=== PATIENT | male | born 1970 | race Caucasian/White ===

== ENCOUNTER → 2017-02-02 | Outpatient (CLI) | payer BC ==
--- NOTE | 2017-02-02 14:02 | KCIC ---
EXAM: Lumbar spine MRI without contrast. HISTORY: Leg weakness. Pain. TECHNIQUE: Multiplanar, multisequence magnetic resonance imaging of the lumbar spine was performed without contrast. COMPARISON: None. FINDINGS: There is grade 1 anterolisthesis of L4 on L5, measuring 7 mm. There is disc desiccation at L4-L5 and L5-S1. The conus terminates at L1. There is mild edema within the right L5 pedicle, likely degenerative or due to a slight stress reaction. No suspicious osseous lesion is seen. There is a small left renal cyst. At L1-L2, there is a mild disc bulge. There is mild facet arthropathy. There is no stenosis. At L2-L3, there is no stenosis. At L3-L4, there is a mild disc bulge with possible tiny right extra foraminal disc protrusion. There is mild facet arthropathy. There is mild right foraminal stenosis with abutment of the exiting right L3 nerve root. At L4-L5, there are left greater than right paracentral to foraminal disc protrusions with slight superior foraminal extrusion superimposed on a disc bulge and endplate remodeling. There is severe facet arthropathy. There is grade 1 anterolisthesis. There is mild right and ecok-pw-fahrbuli left foraminal stenosis with abutment of the exiting left greater than right L4 nerve roots. There is mild central canal stenosis. At L5-S1, there is a right paracentral annular tear superimposed on a disc bulge. There is no stenosis. IMPRESSION: 1. Degenerative change throughout the lumbar spine, described in detail above. This results in mild right foraminal stenosis with abutment of the exiting right L3 nerve root at L3-L4 and mild right and mild to moderate left foraminal stenosis with abutment of the exiting left greater than right L4 nerve root and mild central canal stenosis at L4-L5. 2. Grade 1 anterolisthesis of L4 on L5. Electronically signed by: Marcia Dunbar MD (02/02/2017 1:58 PM) [facility]
== END | disposition home or self-care (01) ==
LOC: KCIC MRI 12:42
PROVIDERS: ATTEND Nurse Practitioner Family
DX: M51.26 Other intervertebral disc displacement, lumbar region (principal); M48.061 Spinal stenosis, lumbar region without neurogenic claudication; R29.898 Other symptoms and signs involving the musculoskeletal system; R53.1 Weakness
CPT/HCPCS: 72148

== ENCOUNTER → 2017-02-13 | Outpatient (CLI) | payer BC ==
--- NOTE | 2017-02-13 16:23 | KCIC ---
LUMBAR SPINE 2-3V Clinical Indication: Spondylolisthesis. Chronic low back pain. Injury years ago. Comparison: MR lumbar spine without contrast February 02, 2017. Findings: Supine lateral and standing flexion and extension lateral views. On neutral view there is grade 1 anterolisthesis of L4 on L5 that measures about 7 mm. There is mild disc space narrowing of L4/L5. Other disc spaces are maintained. No loss of vertebral body height. On the extension view the anterolisthesis measures 7-8 mm. On the flexion view, anterolisthesis measures 11 mm. IMPRESSION: Grade 1 anterolisthesis of L4 on L5. Evidence of instability on the flexion and extension views. Electronically signed by: Rufino Rodarte MD (02/13/2017 4:20 PM) [id number]
== END | disposition home or self-care (01) ==
LOC: KCIC 15:11
PROVIDERS: ATTEND Neurological Surgery
DX: M53.2X6 Spinal instabilities, lumbar region (principal); M43.16 Spondylolisthesis, lumbar region
CPT/HCPCS: 72100

== ENCOUNTER → 2017-03-12 | Outpatient (CLI) | payer BC ==
[2017-03-12 15:58] LABS: ADD MAN DIFF? NO
[2017-03-12 16:01] LABS: BASO % 1 % (0-3); EOS # 0.1 x10^3/uL (0.0-0.7); EOS % 1 % (0-3); HEMATOCRIT 47.7 % (39.0-53.0); HEMOGLOBIN 15.6 g/dL (13.0-17.5); LYMPH # 1.6 x10^3/uL (1.0-4.8); LYMPH % 23 % (24-48); MEAN CORPUSCULAR HEMOGLOBIN 29 pg (25-35); MEAN CORPUSCULAR HGB CONC 33 g/dL (31-37); MEAN CORPUSCULAR VOLUME 88 fL (79-100); MONO # 0.6 x10^3/uL (0.0-1.1); MONO % 9 % (0-9); NEUT # 4.6 x10^3uL (1.8-7.7); NEUT % 66 % (31-73); PLATELET COUNT 183 x10^3/uL (140-400); RED BLOOD COUNT 5.45 x10^6/uL (4.30-5.70); RED CELL DISTRIBUTION WIDTH 14.2 % (11.5-14.5); WHITE BLOOD COUNT 6.9 x10^3/uL (4.0-11.0)
[2017-03-12 16:11] LABS: PARTIAL THROMBOPLASTIN TIME 25 SEC (24-38); PROTHROMBIN TIME PATIENT 12.3 SEC (11.7-14.0)
[2017-03-12 16:23] LABS: ALBUMIN 4.1 g/dL (3.4-5.0); ALBUMIN/GLOBULIN RATIO 1.2 (1.0-1.7); ALK PHOS 86 U/L (46-116); ALT (SGPT) 27 U/L (16-63); ANION GAP 8 (6-14); AST (SGOT) 20 U/L (15-37); BLOOD UREA NITROGEN 14 mg/dL (8-26); BUN/CREATININE RATIO 18 (6-20); CALCIUM 9.6 mg/dL (8.5-10.1); CARBON DIOXIDE 28 mmol/L (21-32); CHLORIDE 103 mmol/L (98-107); CREATININE 0.8 mg/dL (0.7-1.3); GFR 104.1; GLUCOSE 95 mg/dL (70-99); POTASSIUM 4.7 mmol/L (3.5-5.1); SODIUM 139 mmol/L (136-145); TOTAL BILIRUBIN 0.3 mg/dL (0.2-1.0); TOTAL PROTEIN 7.6 g/dL (6.4-8.2)
[2017-03-13 02:12] LABS: MRSA BY PCR Negative (Negative)
== END | disposition home or self-care (01) ==
LOC: SURGPAT 13:16
DX: Z01.818 Encounter for other preprocedural examination (principal); M54.16 Radiculopathy, lumbar region; M43.16 Spondylolisthesis, lumbar region; M48.061 Spinal stenosis, lumbar region without neurogenic claudication
CPT/HCPCS: 36415; 80053; 85025; 85610; 85730; 87641

== ENCOUNTER 2017-03-22 07:56 | Inpatient (IN) | payer BC ==
[~2017-03-22 07:56] MED LIST: HYDROmorphone 2 MG/ML VIAL IV; LIDOCAINE 1% PF 2 ML VIAL. ID; ONDANSETRON PF 4 MG/2 ML VIAL. IV; PROCHLORPERAZINE 10 MG/2 ML VIAL. IV; fentaNYL PF VIAL 100 MCG/2 ML VIAL IV
[2017-03-22] MEDS: IV RINGERS,LACTATED 1000ML 1,000 ML IV (08:42)
[2017-03-22] MEDS: VANCOMYCIN 1GM IVPB FOR OMNI 250 ML IV (09:19)
[2017-03-22] MEDS ORDERED: ONDANSETRON PF 4 MG/2 ML VIAL. (09:44)
[2017-03-22] MEDS ORDERED: MIDAZOLAM HCL/PF 2 MG/2 ML VIAL. (09:44)
[2017-03-22] MEDS ORDERED: PROPOFOL 20 ML IV ×2 (09:44→16:33)
[2017-03-22] MEDS ORDERED: DEXAMETHASONE SOD PHOS 20 MG/5 ML VIAL. (09:44)
[2017-03-22] MEDS ORDERED: LIDOCAINE 1% PF 5 ML VIAL. (09:44)
[2017-03-22] MEDS ORDERED: REMIFENTANIL 2 MG VIAL. IV (09:44)
[2017-03-22] MEDS ORDERED: PROPOFOL 50 ML IV ×3 (09:44→14:31)
[2017-03-22] MEDS ORDERED: ROCURONIUM 50 MG/5 ML VIAL. (09:44)
[2017-03-22] MEDS ORDERED: 0.9 % SODIUM CHLORIDE 50 ML VIAL. IJ (09:44)
[2017-03-22] MEDS ORDERED: MINERAL OIL/PETROLATUM,WHITE OPHTH OINT 3.5GM TUBE. (09:44)
[2017-03-22] MEDS ORDERED: GLYCOPYRROLATE 1 MG/5 ML VIAL. (11:09)
[2017-03-22] MEDS: KETOROLAC 60 MG/2 ML INJ FOR OR. (11:12)
[2017-03-22] MEDS: BACITRACIN 50,000 UNIT in IV NORMAL SALINE 1000ML BAG 1,000 ML IRR (11:12)
[2017-03-22] MEDS: GELATIN SPONGE SIZE 100. (11:12)
[2017-03-22] MEDS: THROMBIN TOPICAL 20,000 UNIT SPRAY.SYRN KIT TP (11:12)
[2017-03-22] MEDS: BUPIVAC MPF-EPI 0.75%-1:200000 30 ML VIAL. (11:12)
[2017-03-22] MEDS ORDERED: DESFLURANE > 120 MINUTES IH (13:04)
[2017-03-22] MEDS ORDERED: REMIFENTANIL 1 MG VIAL. IV (14:01)
[2017-03-22] MEDS ORDERED: VANCOMYCIN 1GM IVPB FOR OMNI. (15:03)
[2017-03-22] MEDS ORDERED: VANCOMYCIN 1GM IVPB FOR OMNI 250 ML IV (15:30)
[2017-03-22] MEDS ORDERED: fentaNYL PF VIAL 100 MCG/2 ML VIAL ×2 (16:01→16:43)
[2017-03-22] MEDS ORDERED: MAGNESIUM HYDROXIDE 2,400 MG/30 ML ORAL.SUSP. PO (16:30)
[2017-03-22] MEDS ORDERED: ACETAMINOPHEN 325 MG TABLET. PO (16:30)
[2017-03-22] MEDS ORDERED: MAG HYDROX/ALUMINUM HYD/SIMETH 30 ML ORAL.SUSP PO (16:30)
[2017-03-22] MEDS ORDERED: diphenhydrAMINE HCL 25 MG CAPSULE PO (16:30)
[2017-03-22] MEDS ORDERED: CALCIUM CARBONATE 500 MG TAB.CHEW PO (16:30)
[2017-03-22] MEDS ORDERED: ONDANSETRON PF 4 MG/2 ML VIAL. IV (16:30)
[2017-03-22] MEDS ORDERED: fentaNYL PF VIAL 100 MCG/2 ML VIAL IV ×2 (16:30)
[2017-03-22] MEDS ORDERED: diphenhydrAMINE 50 MG/ML VIAL IV (16:30)
[2017-03-22] MEDS ORDERED: 0.9 % SODIUM CHLORIDE 10 ML DISP.SYRIN. IV (16:30)
[2017-03-22] MEDS ORDERED: HALOPERIDOL LACTATE 5 MG/ML VIAL. (16:44)
[2017-03-22] MEDS: HALOPERIDOL LACTATE 5 MG/ML VIAL. IV (16:45)
[2017-03-22] MEDS: fentaNYL PF VIAL 100 MCG/2 ML VIAL IV ×4 (16:48→17:12)
[2017-03-22] MEDS: MORPHINE SULFATE 2 MG/ML DISP.SYRIN. IV (16:58)
[2017-03-22] MEDS: POTASSIUM CL 20MEQ D5-0.45NACL 1,000 ML IV (20:00)
[2017-03-22] MEDS: METHOCARBAMOL 750 MG TABLET PO (20:08)
[2017-03-22] MEDS: oxyCODONE/APAP 5/325 1 TAB TABLET PO (20:08)
[2017-03-22] MEDS: DOCUSATE SODIUM 100 MG CAPSULE. PO (20:09)
[2017-03-22] MEDS: rOPINIRole 1 MG TABLET. PO (20:09)
[2017-03-22] MEDS: VANCOMYCIN 1 GM in IV DEXTROSE 5% 250 ML IV (21:35)
[2017-03-22] MEDS: LOPERAMIDE 2 MG CAPSULE PO (23:09)
[2017-03-23] MEDS: oxyCODONE/APAP 5/325 1 TAB TABLET PO ×4 (01:15→15:10)
[2017-03-23] MEDS: traMADol 50 MG TABLET PO (04:08)
[2017-03-23] MEDS: DOCUSATE SODIUM 100 MG CAPSULE. PO (07:06)
[2017-03-23] MEDS: METHOCARBAMOL 750 MG TABLET PO ×3 (11:20→15:10)
[2017-03-23] MEDS: CALCIUM CARBONATE 500 MG TABLET PO (11:20)
[2017-03-23] MEDS: LOPERAMIDE 2 MG CAPSULE PO (11:20)
== END 2017-03-23 15:40 | disposition home or self-care (01) | DRG 455 ==
LOC: OPSVCIP 07:56 → 4 SOUTHWST 17:54
PROC: 0SG00AJ Fusion of Lumbar Vertebral Joint with Interbody Fusion Device, Posterior Approach, Anterior Column, Open Approach (ICD-10-PCS; principal; 2017-03-22 10:18)
PROC: 0SB20ZZ Excision of Lumbar Vertebral Disc, Open Approach (ICD-10-PCS; 2017-03-22 10:18)
PROC: 0SG0071 Fusion of Lumbar Vertebral Joint with Autologous Tissue Substitute, Posterior Approach, Posterior Column, Open Approach (ICD-10-PCS; 2017-03-22 10:18)
PROC: 4A11X4G Monitoring of Peripheral Nervous Electrical Activity, Intraoperative, External Approach (ICD-10-PCS; 2017-03-22 10:18)
DX: M48.061 Spinal stenosis, lumbar region without neurogenic claudication (principal); M43.16 Spondylolisthesis, lumbar region; M54.16 Radiculopathy, lumbar region; Z87.891 Personal history of nicotine dependence
CPT/HCPCS: 36415; 72131; 76000; 86850; 86900; 86901; 97116-GP; 97162-GP; C1713; G8978-CI-GP; G8979-CI-GP; G8980-CI-GP; J1100; J1630; J1885; J2250; J2270; J2405; J2704; J3010; J3370; J3490; J7030; J7120

== ENCOUNTER → 2017-06-12 | Outpatient (CLI) | payer BC | END | disposition home or self-care (01) | LOC: KCIC 10:24 | DX: M47.816 Spondylosis without myelopathy or radiculopathy, lumbar region (principal); Z98.1 Arthrodesis status | CPT/HCPCS: 72100 ==

== ENCOUNTER → 2018-09-20 | Outpatient (CLI) | payer BC ==
[2017-03-23 11:27] VITALS: BP 137/94
[~2018-09-20] MED LIST changes: +CALC600T4 PO; +DICL50TA2 PO; +FAMO-63 PO; +HYDR-2761 PO; -HYDROmorphone 2 MG/ML VIAL IV; +IBUP-1060 PO; -LIDOCAINE 1% PF 2 ML VIAL. ID; +LOPE2CAP88 PO; +METH-38 PO; -ONDANSETRON PF 4 MG/2 ML VIAL. IV; +OXYC1TAB15 PO; -PROCHLORPERAZINE 10 MG/2 ML VIAL. IV; +ROPI2TAB4 PO; +TRAM50TA PO; -fentaNYL PF VIAL 100 MCG/2 ML VIAL IV
--- NOTE | 2018-09-20 11:44 | RAD ---
MR#: [id number] Date of Study: 09/20/2018 Ordering Physician: LELE JOHNSON, Referring Physician: ALANNA ROMERO Tech: RT Iggy (R) (N) APPROVED REPORT Test Type: Exercise Stress Nurse/Tech: Teresa COFFMAN Test Indications: Chest Pressure Cardiac History: See EMR Medications: See EMR Medical History: Smoker, See EMR Resting ECG: SR Resting Heart Rate: 54 bpm Resting Blood Pressure: 117/77mmHg Pretest Chest Pain: No chest pain Nurse/Tech Notes Lungs CTA; Heart tones regular. Consent: The procedure was explained to the patient in lay terms. Informed consent was witnessed. Ousmane eout was entered into [employer]. History and Stress Test performed by RT Scarlet (R) (N) Stress Symptoms No chest pain or symptoms. POST EXERCISE Reason for Termination: Reached target heart rate Target HR: Yes Max HR: 152 bpm 88% of Maximum Predicted HR: 172 bpm Exercise duration: 10:30 min:sec, 4 Stage Exercise capacity: 13.4METs Max Blood Pressure: 140/80mmHg Blood Pressure response to exercise: Normal blood pressure response during stress. Heart Rate response to exercise: WNL Chest Pain: No. Arrhythmia: No. ST Change: No. INTERPRETATION Stress EKG Conclusion: The resting EKG shows a sinus rhythm and nonspecific ST segment changes. The stress EKG shows no significant changes from baseline. No EKG evidence of stressed induced ischemia. Imaging Protocol IMAGE PROTOCOL: Rest Tc-99m/stress Tc-99m 1 day Rest: Stress: Viability: Radiopharm.Tc99m CyttjvmogOa15r Sestamibi Xsqb22oEt 32.1mCi Duration 15min. 15min. Img Date 09/20/2018 09/20/2018 Inj-Img Ivsd91lpf. 60min. Rest Admin Site:IV - Left AntecubitalAdministrator:RT Scarlet (Steven)(N) Stress Admin Site: IV - Left AntecubitalAdministrator: RT Scarlet (R)(N) STRESS DATA End Diast. Vol.110.0mlLVEDV index BSA57.0ml End Syst. Vol.30.0mlLVESV index BSA15.0ml Myocardial Mrjg194.0gEject. Jqniahym69.0% Stress Scores Regional WT0.00Summed WT0.00 Regional WM0.00Summed WM1.00 LV Perfusion The stress scans show no significant defects. The rest scans show a mild inferior wall defect. Nuclear imaging shows no reversible ischemia or infarct. Wall Motion Normal left ventricular systolic function with an ejection fraction of greater than 70%. LV Perf. Quant 17 Seg. SSS0.00 17 Seg. SRS7.00 17 Seg. SDS0.00 Stress Defect Extent (% LAD)0.00Rest Defect Extent (% LAD)8.10Rev. Defect Extent (% LAD)0.00 Stress Defect Extent (% LCX) 0.00Rest Defect Extent (% LCX)0.00Rev. Defect Extent (% LCX)0.00 Stress Defect Extent (% RCA)0.00Rest Defect Extent (% RCA)28.90Rev. Defect Extent (% RCA)0.00 Stress Defect Extent (% NINA)0.00Rest Defect Extent (% NINA)13.50Rev. Defect Extent (% NINA)0.00 Conclusion 1. Very good exercise tolerance. 2. No EKG evidence of stressed induced ischemia. 3. Nuclear imaging shows no reversible ischemia or infarct. 4. LV systolic function of greater than 70%. 5. Low risk treadmill nuclear stress test. Signed by : Lele Johnson MD Electronically Approved : 09/20/2018 11:44:33
== END | disposition home or self-care (01) ==
LOC: NM 07:57
PROVIDERS: ATTEND Internal Medicine Cardiovascular Disease
DX: R07.89 Other chest pain (principal); Z87.891 Personal history of nicotine dependence
CPT/HCPCS: 78452; 93017; A9500; 96376

== ENCOUNTER 2018-10-08 08:03 | Emergency (ER) | payer BC ==
[~2018-10-08] VITALS: Ht 182.9 cm; Wt 72.6 kg
[~2018-10-08 08:03] MED LIST changes: -FAMO-63 PO; -HYDR-2761 PO
--- NOTE | 2018-10-08 08:59 | EKG ---
[facility] [address] [place] [address] Test Date: 2018-10-08 Test Time: 08:13:23 Pat Name: LUIS GARCIA Department: Room: Gender: M [employer]: : 1970 Requested By: MIKE DE LA CRUZ Order Number: [id number] Reading MD: Measurements Intervals [place] Rate: 51 P: 40 CA: 148 QRS: 66 QRSD: 92 T: 53 QT: 390 QTc: 361 Interpretive Statements SINUS RHYTHM NO SPECIFIC ECG ABNORMALITIES RI6.01 Unconfirmed report No previous ECG available for comparison
--- NOTE | 2018-10-08 09:07 | RAD ---
CHEST AP ONLY History: Chest pain Comparison: None. Findings: No consolidation or pleural effusion. Normal heart size. Calcified left upper lobe pulmonary nodule. Impression: 1. No acute cardiopulmonary process. Electronically signed by: Momo Torres DO (10/08/2018 9:04 AM) [facility]
[2018-10-08 09:30] LABS: BASO % 1 % (0-3); EOS # 0.1 x10^3/uL (0.0-0.7); EOS % 2 % (0-3); HEMATOCRIT 45.2 % (39.0-53.0); HEMOGLOBIN 15.2 g/dL (13.0-17.5); LYMPH # 1.7 x10^3/uL (1.0-4.8); LYMPH % 27 % (24-48); MEAN CORPUSCULAR HEMOGLOBIN 29 pg (25-35); MEAN CORPUSCULAR HGB CONC 34 g/dL (31-37); MEAN CORPUSCULAR VOLUME 86 fL (79-100); MONO # 0.5 x10^3/uL (0.0-1.1); MONO % 9 % (0-9); NEUT # 3.8 x10^3/uL (1.8-7.7); NEUT % 62 % (31-73); PLATELET COUNT 147 x10^3/uL (140-400); RED BLOOD COUNT 5.24 x10^6/uL (4.30-5.70); RED CELL DISTRIBUTION WIDTH 14.7 % (11.5-14.5); WHITE BLOOD COUNT 6.2 x10^3/uL (4.0-11.0)
[2018-10-08 10:00] LABS: CALCIUM 9.1 mg/dL (8.5-10.1); CREATININE 0.8 mg/dL (0.7-1.3); GFR 103.2; POTASSIUM 4.1 mmol/L (3.5-5.1)
[2018-10-08 10:05] LABS: ALBUMIN 3.8 g/dL (3.4-5.0); ALBUMIN/GLOBULIN RATIO 1.3 (1.0-1.7); TOTAL BILIRUBIN 0.3 mg/dL (0.2-1.0); TOTAL PROTEIN 6.8 g/dL (6.4-8.2)
--- NOTE | 2018-10-08 10:46 | PHYS DOC ---
Past Medical History Past Medical History: Other Additional Past Medical Histor: restless legg syndrome Past Surgical History: Other Additional Past Surgical Histo: back surgery 2 years ago Alcohol Use: None Drug Use: None Adult General Chief Complaint Chief Complaint: CHEST PAIN HPI HPI Patient is a 48 year old male with history of tobaccoism who presents with left-sided chest wall pain starting last evening while at work. Pain is described as a burning sensation is rated moderate to severe with activity, arm movement and deep breathing. Patient denies fever, cough, nausea vomiting and sweats. Denies leg pain or swelling. No history of DVT or PE. No pain. This factors include gender and active smoking. [] Review of Systems Review of Systems ROS as per HPI. All other ROS are negative. All other systems were reviewed and found to be within normal limits, except as documented in this note. Allergies Allergies Allergies Coded Allergies Type Severity Reaction Last Updated Verified Penicillins Adverse Reaction Intermediate 03/22/17 Yes Physical Exam Physical Exam Constitutional: Well developed, well nourished, no acute distress, non-toxic appearance. [] HENT: Normocephalic, atraumatic, bilateral external ears normal, oropharynx moist, no oral exudates, nose normal. [] Eyes: PERRLA, EOMI, conjunctiva normal [] Neck: Normal range of motion, no tenderness, supple, no stridor. [] Cardiovascular:Heart rate regular rhythm, no murmur , negative Homans signs.[] Lungs & Thorax: Bilateral breath sounds clear to auscultation, left-sided reproducible chest wall pain. [] Abdomen: Bowel sounds normal, soft, no tenderness. [] Skin: Warm, dry. [] Back: No tenderness. [] Extremities: No tenderness, no edema. [] Neurologic: Alert and oriented X 3, normal motor function, normal sensory function, no focal deficits noted. [] Psychologic: Affect normal, judgement normal, mood normal. [] Current Patient Data Vital Signs Vital Signs Date Time Temp Pulse Resp B/P (MAP) Pulse Ox O2 Delivery O2 Flow Rate FiO2 10/08/18 08:20 98.3 53 16 121/79 (93) 99 Room Air 98.3 Lab Values Laboratory Tests Test 10/08/18 09:20 White Blood Count 6.2 x10^3/uL (4.0-11.0) Red Blood Count 5.24 x10^6/uL (4.30-5.70) Hemoglobin 15.2 g/dL (13.0-17.5) Hematocrit 45.2 % (39.0-53.0) Mean Corpuscular Volume 86 fL (79-100) Mean Corpuscular Hemoglobin 29 pg (25-35) Mean Corpuscular Hemoglobin Concent 34 g/dL (31-37) Red Cell Distribution Width 14.7 % (11.5-14.5) H Platelet Count 147 x10^3/uL (140-400) Neutrophils (%) (Auto) 62 % (31-73) Lymphocytes (%) (Auto) 27 % (24-48) Monocytes (%) (Auto) 9 % (0-9) Eosinophils (%) (Auto) 2 % (0-3) Basophils (%) (Auto) 1 % (0-3) Neutrophils # (Auto) 3.8 x10^3/uL (1.8-7.7) Lymphocytes # (Auto) 1.7 x10^3/uL (1.0-4.8) Monocytes # (Auto) 0.5 x10^3/uL (0.0-1.1) Eosinophils # (Auto) 0.1 x10^3/uL (0.0-0.7) Basophils # (Auto) 0.0 x10^3/uL (0.0-0.2) D-Dimer (Nina) 0.30 ug/mlFEU (0.00-0.50) Sodium Level 143 mmol/L (136-145) Potassium Level 4.1 mmol/L (3.5-5.1) Chloride Level 106 mmol/L (98-107) Carbon Dioxide Level 28 mmol/L (21-32) Anion Gap 9 (6-14) Blood Urea Nitrogen 18 mg/dL (8-26) Creatinine 0.8 mg/dL (0.7-1.3) Estimated GFR (Cockcroft-Gault) 103.2 BUN/Creatinine Ratio 23 (6-20) H Glucose Level 106 mg/dL (70-99) H Calcium Level 9.1 mg/dL (8.5-10.1) Total Bilirubin 0.3 mg/dL (0.2-1.0) Aspartate Amino Transferase (AST) 19 U/L (15-37) Alanine Aminotransferase (ALT) 27 U/L (16-63) Alkaline Phosphatase 92 U/L (46-116) Troponin I Quantitative < 0.017 ng/mL (0.000-0.055) Total Protein 6.8 g/dL (6.4-8.2) Albumin 3.8 g/dL (3.4-5.0) Albumin/Globulin Ratio 1.3 (1.0-1.7) Lipase 132 U/L (73-393) Laboratory Tests 10/08/18 09:20 Laboratory Tests 10/08/18 09:20 EKG EKG EK[G: Reviewed] Radiology/Procedures Radiology/Procedures [Chest x-ray: No acute cardiopulmonary disease per radiology report.] Course & Med Decision Making Course & Med Decision Making Pertinent Labs and Imaging studies reviewed. (See chart for details) [Patient atypical chest pain, pain reproduces with palpation and activity. No nausea vomiting, shortness breath. Lab work, troponin EKG nondiagnostic. His most consistent with pleurisy. Heart score of 1. Recommendations are for supportive care, watchful waiting and close PCP follow-up. Return cautions reviewed. Patient verbalizes understanding and agreement with discharge in structions prior to departure.] Dragon Disclaimer Dragon Disclaimer This electronic medical record was generated, in whole or in part, using a voice recognition dictation system. Departure Departure Impression: Primary Impression: Chest pain Additional Impression: Pleurisy Disposition: ADMITTED INPATIENT Condition: GOOD Referrals: MANNY COE MD (PCP) Patient Instructions: Chest Pain (Nonspecific), Fzzz-nx-Xsav, Pleurisy, Sync-he-Bgte Additional Instructions: You were evaluated in the emergency department for left-sided chest wall pain. EKG, lab and imaging studies were performed and are nondiagnostic. The exact cause of your symptoms has not been determined, but may be related to pleurisy, which is inflammation of the lining of the lung. Please take ibuprofen 600 mg 3 times daily for chest wall pain. Take hydrocodone as needed for additional relief. Please take prevent ibuprofen related stomach upset. Follow-up with your local primary care physician in the next 3-5 days for reevaluation. In the meantime, if you develop new or worsening symptoms, please return to the emergency department. Scripts Hydrocodone Bit/Acetaminophen (HYDROCODONE-APAP 5-325 ) 1 Tab Tablet 1 TAB PO PRN Q6HRS PRN for PAIN, #14 TAB 0 Refills Prov: MIKE DE LA CRUZ DO 10/08/18 Famotidine (PEPCID) 20 Mg Tablet 20 MG PO BID, #30 TAB Prov: MIKE DE LA CRUZ DO 10/08/18 Problem Qualifiers MIKE DE LA CRUZ DO Oct 08, 2018 10:46
[2018-10-08 10:48] VITALS: BP 124/70
[2018-10-08] MEDS ORDERED: FAMO-63 PO (10:54)
[2018-10-08] MEDS ORDERED: HYDR-2761 PO (10:54)
== END 2018-10-08 11:30 | disposition home or self-care (01) ==
LOC: ER 08:03
DX: R09.1 Pleurisy (principal); Z87.891 Personal history of nicotine dependence; Z88.0 Allergy status to penicillin
CPT/HCPCS: 36415; 71045; 80053; 83690; 84484; 85025; 85379; 93005; 99285

== ENCOUNTER 2019-01-31 13:28 | Emergency (ER) | payer BC ==
[~2019-01-31] VITALS: Ht 182.9 cm; Wt 65.8 kg
[~2019-01-31 13:28] MED LIST changes: +FAMO-63 PO; +HYDR-2761 PO; +LOPE-101 PO; -LOPE2CAP88 PO
--- NOTE | 2019-01-31 14:16 | PHYS DOC ---
Past Medical History Past Medical History: Other Additional Past Medical Histor: restless legg syndrome Past Surgical History: Other Additional Past Surgical Histo: back surgery 2 years ago Alcohol Use: None Drug Use: None Adult General Chief Complaint Chief Complaint: ABDOMINAL PAIN HPI HPI 48-year-old male presents to emergency Department with complaints of diarrhea. Patient states diarrhea started last Sunday at that time they had multiple family members with concern for food poisoning. He denies any fever, nausea, vomiting. He states he has been using Imodium however no change in output. Patient states he's not able to eat or drink secondary to multiple episodes of diarrhea. Nothing makes his symptoms better. Review of Systems Review of Systems Constitutional: Denies fever or chills [] Eyes: Denies change in visual acuity, redness, or eye pain [] HENT: Denies nasal congestion or sore throat [] Respiratory: Denies cough or shortness of breath [] Cardiovascular: No additional information not addressed in HPI [] GI: Denies abdominal pain, nausea, vomiting, + diarrhea [] : Denies dysuria or hematuria [] Musculoskeletal: Denies back pain or joint pain [] Integument: Denies rash or skin lesions [] Neurologic: Denies headache, focal weakness or sensory changes [] All other systems were reviewed and found to be within normal limits, except as documented in this note. Current Medications Current Medications Current Medications Medications (Trade) Dose Ordered Sig/Karsten Start Time Stop Time Status Last Admin Dose Admin Iohexol (Omnipaque 300 Mg/ml) 75 ml 1X ONCE 01/31/19 15:00 01/31/19 15:01 DC 01/31/19 15:27 75 ML Sodium Chloride 1,000 ml @ 1,000 mls/hr 1X ONCE 01/31/19 14:30 01/31/19 15:29 DC 01/31/19 14:37 1,000 MLS/HR Allergies Allergies Allergies Coded Allergies Type Severity Reaction Last Updated Verified Penicillins Adverse Reaction Intermediate 03/22/17 Yes Physical Exam Physical Exam Constitutional: Well developed, well nourished, no acute distress, non-toxic appearance. [] HENT: Normocephalic, atraumatic, bilateral external ears normal, oropharynx moist, no oral exudates, nose normal. [] Eyes: PERRLA, EOMI, conjunctiva normal, no discharge. [] Cardiovascular:Heart rate regular rhythm, no murmur [] Lungs & Thorax: Bilateral breath sounds clear to auscultation [] Abdomen: Bowel sounds normal, soft, no tenderness, no masses, no pulsatile masses. [] Skin: Warm, dry, no erythema, no rash. [] Back: No tenderness, no CVA tenderness. [] Extremities: No tenderness, no edema. [] Neurologic: Alert and oriented X 3, no focal deficits noted. [] Psychologic: Affect normal, judgement normal, mood normal. [] Current Patient Data Vital Signs Vital Signs Date Time Temp Pulse Resp B/P (MAP) Pulse Ox O2 Delivery O2 Flow Rate FiO2 01/31/19 14:07 98.1 66 16 140/79 (99) 97 Room Air 98.1 Lab Values Laboratory Tests Test 01/31/19 14:25 White Blood Count 8.7 x10^3/uL (4.0-11.0) Red Blood Count 5.60 x10^6/uL (4.30-5.70) Hemoglobin 16.4 g/dL (13.0-17.5) Hematocrit 48.0 % (39.0-53.0) Mean Corpuscular Volume 86 fL (79-100) Mean Corpuscular Hemoglobin 29 pg (25-35) Mean Corpuscular Hemoglobin Concent 34 g/dL (31-37) Red Cell Distribution Width 14.1 % (11.5-14.5) Platelet Count 159 x10^3/uL (140-400) Neutrophils (%) (Auto) 81 % (31-73) H Lymphocytes (%) (Auto) 11 % (24-48) L Monocytes (%) (Auto) 7 % (0-9) Eosinophils (%) (Auto) 1 % (0-3) Basophils (%) (Auto) 0 % (0-3) Neutrophils # (Auto) 7.0 x10^3/uL (1.8-7.7) Lymphocytes # (Auto) 1.0 x10^3/uL (1.0-4.8) Monocytes # (Auto) 0.6 x10^3/uL (0.0-1.1) Eosinophils # (Auto) 0.0 x10^3/uL (0.0-0.7) Basophils # (Auto) 0.0 x10^3/uL (0.0-0.2) Sodium Level 141 mmol/L (136-145) Potassium Level 4.4 mmol/L (3.5-5.1) Chloride Level 102 mmol/L (98-107) Carbon Dioxide Level 30 mmol/L (21-32) Anion Gap 9 (6-14) Blood Urea Nitrogen 10 mg/dL (8-26) Creatinine 1.0 mg/dL (0.7-1.3) Estimated GFR (Cockcroft-Gault) 79.8 BUN/Creatinine Ratio 10 (6-20) Glucose Level 100 mg/dL (70-99) H Lactic Acid Level 0.8 mmol/L (0.4-2.0) Calcium Level 9.4 mg/dL (8.5-10.1) Total Bilirubin 0.5 mg/dL (0.2-1.0) Aspartate Amino Transferase (AST) 17 U/L (15-37) Alanine Aminotransferase (ALT) 31 U/L (16-63) Alkaline Phosphatase 100 U/L (46-116) Total Protein 7.4 g/dL (6.4-8.2) Albumin 4.0 g/dL (3.4-5.0) Albumin/Globulin Ratio 1.2 (1.0-1.7) Lipase 79 U/L (73-393) Laboratory Tests 01/31/19 14:25 Laboratory Tests 01/31/19 14:25 EKG EKG [] Radiology/Procedures Radiology/Procedures [facility] [address] [place], [place] [id number] IMAGING REPORT Signed PATIENT: LUIS GARCIA ACCOUNT: [id number] : 1970 LOCATION: ER AGE: 48 SEX: M EXAM STATUS: REG ER ORD. PHYSICIAN: JOHNY TAPIA MD REASON: abdominal pain, diarrhea PROCEDURE: CT ABD PELV W/ IV CONTRST ONLY CT ABD PELV W/ IV CONTRST ONLY Indication: Abdominal pain, diarrhea. Exposure: One or more of the following individualized dose reduction techniques were utilized for this examination: 1. Automated exposure control 2. Adjustment of the mA and/or kV according to patient size 3. Use of iterative reconstruction technique. Technique: Intravenous contrast was given. No oral contrast per request. Comparison: None FINDINGS: Dependent markings in both lung bases, compatible with atelectasis. Liver and spleen appear unremarkable. The pancreas is difficult to assess distinguish from adjacent unopacified bowel but no obvious abnormality. Left adrenal mass measures 2.2 x 1.7 cm. Small right adrenal mass with a bilobed morphology measures 2.3 x 1.0 cm. Kidneys demonstrate symmetric enhancement without hydronephrosis or focal mass. No evidence of calcified gallstone. Aorta is ectatic. Small infrarenal abdominal aortic aneurysm measuring 3.0 x 2.5 cm. No evidence of pathologic lymph node enlargement. Stomach is not distended limiting evaluation. No significant small bowel distention. Apparent wall thickening of the entire colon through rectum, could just be due to nondistention. Mild generalized colitis could be considered but note there is no evidence of gross paracolonic fatty stranding to suggest inflammation. Mild density within the appendix could represent contrast from prior radiology study, or a small appendicolith. No evidence of appendiceal distention or inflammatory type change. No evidence of ascites. No evidence of pneumoperitoneum. Urinary bladder appears unremarkable. Postsurgical changes at the spine from L4 through S1. Mild anterior subluxation of L4 on L5. Mild degenerative spondylosis. No evidence of aggressive bone destruction. IMPRESSION: 1. Bilateral adrenal masses, larger on the left. Uncertain significance, could represent adenomas but other etiologies including metastatic disease is not excludable. Follow-up outpatient MRI or PET/CT scan could further evaluate. 2. Small infrarenal abdominal aortic aneurysm, measures 3.0 x 2.5 cm. 3. Apparent mild wall thickening throughout the colon and rectum. This could be due to limited distention, versus mild colitis. Electronically signed by: Ja Martell MD (01/31/2019 3:50 PM) [facility] DICTATED and SIGNED BY: JA MARTELL MD DATE: 01/31/19 [id number] [] Course & Med Decision Making Course & Med Decision Making Pertinent Labs and Imaging studies reviewed. (See chart for details) []48-year-old male presents to emergency Department with complaints of diarrhea. Patient states diarrhea started last Sunday at that time they had multiple family members with concern for food poisoning. He denies any fever, nausea, vomiting. He states he has been using Imodium however no change in output. Patient states he's not able to eat or drink secondary to multiple episodes of diarrhea. Nothing makes his symptoms better. Labs/imaging reviewed CT with evidence of bilateral adrenal mass - discussed with patient CT does show mild colitis which may be attributing to his diarrhea Plan oral abx upon discharge Discussed follow up with PCP Amy Disclaimer Amy Disclaimer This electronic medical record was generated, in whole or in part, using a voice recognition dictation system. Departure Departure Impression: Primary Impression: Colitis Additional Impression: Adrenal mass Disposition: HOME, SELF-CARE Condition: STABLE Referrals: UNKNOWN PCP NAME (PCP) Patient Instructions: Colitis Additional Instructions: Recommend follow up with PCP 3 - 5 days Return to the ER with worsening symptoms, intractable pain, fever, altered mental status Tylenol/Motrin as needed for pain Take antibiotics - cipro and flagyl per rx Scripts Metronidazole (FLAGYL) 500 Mg Tablet 1 TAB PO TID for 10 Days, #30 TAB Prov: JOHNY TAPIA MD 01/31/19 Ciprofloxacin Hcl (CIPRO) 250 Mg Tablet 2 TAB PO BID for infection for 10 Days, #40 TAB Prov: JOHNY TAPIA MD 01/31/19 Problem Qualifiers JOHNY TAPIA MD Jan 31, 2019 14:15
[2019-01-31] MEDS ORDERED: IV NORMAL SALINE 1000ML BAG 1,000 ML IV ONE (14:30)
[2019-01-31 14:38] LABS: BASO % 0 % (0-3); EOS % 1 % (0-3); HEMOGLOBIN 16.4 g/dL (13.0-17.5); LYMPH % 11 % (24-48); MEAN CORPUSCULAR HEMOGLOBIN 29 pg (25-35); MEAN CORPUSCULAR HGB CONC 34 g/dL (31-37); MEAN CORPUSCULAR VOLUME 86 fL (79-100); MONO # 0.6 x10^3/uL (0.0-1.1); MONO % 7 % (0-9); NEUT % 81 % (31-73); PLATELET COUNT 159 x10^3/uL (140-400); RED CELL DISTRIBUTION WIDTH 14.1 % (11.5-14.5); WHITE BLOOD COUNT 8.7 x10^3/uL (4.0-11.0)
[2019-01-31 14:47] LABS: CALCIUM 9.4 mg/dL (8.5-10.1); GFR 79.8; POTASSIUM 4.4 mmol/L (3.5-5.1)
[2019-01-31 14:53] LABS: ALBUMIN/GLOBULIN RATIO 1.2 (1.0-1.7); TOTAL BILIRUBIN 0.5 mg/dL (0.2-1.0); TOTAL PROTEIN 7.4 g/dL (6.4-8.2)
[2019-01-31] MEDS ORDERED: IOHEXOL 300 MG/ML 100ML VIAL. IV ONE (15:00)
--- NOTE | 2019-01-31 15:53 | RAD ---
CT ABD PELV W/ IV CONTRST ONLY Indication: Abdominal pain, diarrhea. Exposure: One or more of the following individualized dose reduction techniques were utilized for this examination: 1. Automated exposure control 2. Adjustment of the mA and/or kV according to patient size 3. Use of iterative reconstruction technique. Technique: Intravenous contrast was given. No oral contrast per request. Comparison: None FINDINGS: Dependent markings in both lung bases, compatible with atelectasis. Liver and spleen appear unremarkable. The pancreas is difficult to assess distinguish from adjacent unopacified bowel but no obvious abnormality. Left adrenal mass measures 2.2 x 1.7 cm. Small right adrenal mass with a bilobed morphology measures 2.3 x 1.0 cm. Kidneys demonstrate symmetric enhancement without hydronephrosis or focal mass. No evidence of calcified gallstone. Aorta is ectatic. Small infrarenal abdominal aortic aneurysm measuring 3.0 x 2.5 cm. No evidence of pathologic lymph node enlargement. Stomach is not distended limiting evaluation. No significant small bowel distention. Apparent wall thickening of the entire colon through rectum, could just be due to nondistention. Mild generalized colitis could be considered but note there is no evidence of gross paracolonic fatty stranding to suggest inflammation. Mild density within the appendix could represent contrast from prior radiology study, or a small appendicolith. No evidence of appendiceal distention or inflammatory type change. No evidence of ascites. No evidence of pneumoperitoneum. Urinary bladder appears unremarkable. Postsurgical changes at the spine from L4 through S1. Mild anterior subluxation of L4 on L5. Mild degenerative spondylosis. No evidence of aggressive bone destruction. IMPRESSION: 1. Bilateral adrenal masses, larger on the left. Uncertain significance, could represent adenomas but other etiologies including metastatic disease is not excludable. Follow-up outpatient MRI or PET/CT scan could further evaluate. 2. Small infrarenal abdominal aortic aneurysm, measures 3.0 x 2.5 cm. 3. Apparent mild wall thickening throughout the colon and rectum. This could be due to limited distention, versus mild colitis. Electronically signed by: Ja Martell MD (01/31/2019 3:50 PM) [facility]
[2019-01-31] MEDS ORDERED: CIPR250T30 PO (16:37)
[2019-01-31] MEDS ORDERED: METR500T PO (16:37)
[2019-01-31 17:05] VITALS: BP 117/71
== END 2019-01-31 17:12 | disposition home or self-care (01) ==
LOC: ER 13:28
DX: K52.9 Noninfective gastroenteritis and colitis, unspecified (principal); E27.9 Disorder of adrenal gland, unspecified; G25.81 Restless legs syndrome; Z98.890 Other specified postprocedural states; Z88.0 Allergy status to penicillin
CPT/HCPCS: 36415; 74177; 80053; 83605; 83690; 85025; 96360; 96361; 99285; J7030; Q9967